=== PATIENT | male | born 1955 | race Caucasian/White ===

== ENCOUNTER 2017-09-11 12:12 | Day surgery (SDC) | payer OTHER ==
[2017-09-11] MEDS ORDERED: LIDOCAINE 2% MDV (20MG/ML) 20ML VIAL IV ONE (14:00)
[2017-09-11] MEDS ORDERED: MIDAZOLAM HCL 2MG/2ML VIAL IV ONE (14:00)
[2017-09-11] MEDS ORDERED: PROPOFOL 10 MG/ML VIAL IV ONE (14:00)
--- NOTE | 2017-09-12 13:00 | Operative Note ---
DATE OF SURGERY: 09/11/2017 OPERATION: COLONOSCOPY with cold forceps polypectomy, cold snare polypectomy x2, hot snare polypectomy, and hemoclip placement. PREOPERATIVE DIAGNOSIS: History of large adenomas. POSTOPERATIVE DIAGNOSES: 1. Moderate residual adenoma of ascending colon. 2. Three other ascending colon polyps. 3. Ink/scar in rectum from prior polypectomy. PROCEDURE: After informed consent was obtained from the patient, he was placed in the left lateral decubitus position in the endoscopy suite, sedated and monitored by the department of anesthesia. Digital rectal exam was unremarkable. A well-lubricated [id number] colonoscope was inserted into the rectum and advanced to the cecum. The cecum and cecal bulb were unremarkable. In the ascending colon, there was a diminutive polyp removed with a cold forceps. There were 2 other sessile polyps approximately 4-5 mm removed with a cold snare. In J-turn position in the right colon at the site of previous ink, there was noted to be a moderate size residual polyp. This was quite sessile, removed in piecemeal fashion with a polypectomy snare and ERBE Endocut current. The site was then closed with a hemoclip. There was no bleeding noted after the hemoclip had been placed. There was minimal bleeding prior to that. The remainder of the ascending colon, transverse colon, descending colon, sigmoid colon, and rectum were unremarkable. J-turn views of the anorectum revealed the previous polypectomy site with scar deformity. No residual polyp tissue and previously injected ink. The endoscope was straightened, the rectal ampulla deflated, and the endoscope was removed. RECOMMENDATIONS: I would suggest the patient follow a low-fiber diet for the next 2 weeks and a high-fiber diet thereafter. He will require repeat exam in 3 years. As always, thank you for allowing me to participate in the healthcare of your patients. CC: Julia ARANDA
== END 2017-09-11 14:10 | disposition home or self-care (01) ==
LOC: HOP 12:12
PROVIDERS: ATTEND Internal Medicine Gastroenterology
DX: Z12.11 Encounter for screening for malignant neoplasm of colon (principal); Z86.010 Personal history of colon polyps; D12.2 Benign neoplasm of ascending colon; D12.4 Benign neoplasm of descending colon